=== PATIENT | female | born 1980 | race Caucasian/White ===

== ENCOUNTER 2021-05-25 12:24 | Outpatient (CLI) | payer MEDICAID, SELFPAY ==
[2021-05-25 14:44] LABS: Follicle Stimulating Hormone 7.5 mIU/mL; Luteinizing Hormone 3.7 mIU/mL; Prolactin 6.3 ng/mL; T4 Free Direct 0.97 ng/dL (0.76-1.46); Thyroid Stim Hormone (TSH) 1.47 uIU/mL (0.358-3.74)
[2021-06-02 21:31] LABS: HPV APTIMA, High Risk Positive (Negative)
== END 2021-05-25 23:59 | disposition home or self-care (01) ==
PROVIDERS: Visit Provider Student in an Organized Health Care Education/Training Program
DX: Z12.4 Encounter for screening for malignant neoplasm of cervix (principal); N92.6 Irregular menstruation, unspecified
CPT/HCPCS: 36415; 82627; 83001; 83002; 84146; 84402; 84439; 84443; 87624; 88175; 82626; G0145

== ENCOUNTER → 2021-07-03 | Outpatient (CLI) | payer MEDICAID, SELFPAY ==
--- NOTE | 2021-07-03 | IMM_PTH ---
PATIENT: GARIMA VILLEGAS [facility] U#:[id number] AGE/SX: 40/F ROOM: RE07/03/[address]: Dr. Myra Felix, : 1980 BED: DIS: 07/03/2021 SPEC #: [id number] RECD: 07/03/21 11:39 STATUS: SMITH RENicky #: [id number] ROBBY: 07/03/21 00:[address]: Myra Felix DEPT: IMMUNOHISTOCHEMISTRY RECD BY: Katherine Mckeon Tissues: A - Uterine cervix, NOS B - Endocervical Procedures: p16 (initial) KI-67 (add) PHYSICIAN & [place] [id number] SPECIMEN INFORMATION: Tissue Source: A ? Cervical biopsy, 6 at 12 o?clock, B ? Endocervical curettings Clinical Info: HGSIL, HPV positive Specimen Number: [id number] A & B CPT code: 94155 x2, 49256 x2 METHODOLOGY: Deparaffinized sections of prefer/formalin-fixed tissue or PAP/DQ stained slides are incubated with monoclonal/polyclonal antibodies/oligonucleotide probes. Localization is made via biotin free immunoperoxidase method. Appropriate controls are performed and reacted as expected. Results on target cell population are indicated in the following table: RESULTS: ANTIBODY / CLONE RESULT Block A P16 (E6H4) negative Ki-67 (30-9) positive, low Block B P16 (E6H4) negative Ki-67 (30-9) positive, low These tests were developed and their performance characteristics determined by [facility]. They may not have been cleared or approved by the [place]. Food and Drug Administration. The FDA has determined that such clearance or approval is not necessary. The above immunohistochemical/dualISH markers are ordered and reviewed by the Pathologist. INTERPRETATION: A. Cervix, biopsy: No evidence of dysplasia. B. Endocervix, curettings: No evidence of dysplasia. AM:brenda 07/08/2021
--- NOTE | 2021-07-03 | CER_PTH ---
PATIENT: GARIMA VILLEGAS LOC: [facility]#:[id number] AGE/SX: 40/F ROOM: RE07/03/[address]: Dr. Myra Felix, : 1980 BED: DIS: 07/03/2021 SPEC #: [id number] RECD: 07/03/21 14:02 STATUS: SMITH NICHOLAS #: [id number] ROBBY: 07/03/21 00:[address]: Myra Felix DEPT: SURGICAL PATHOLOGY RECD BY: Katherine Mckeon Tissues: A - Uterine cervix, NOS B - Endocervical Procedures: Surgery Specimen Level IV HEADER OPERATION: Colposcopy PRE-OP DIAGNOSIS: HGSIL, HPV positive TISSUE SUBMITTED: A - Cervical Biopsy 6 and 12 o'clock, B - ECC MICROSCOPIC DIAGNOSIS A. Cervix at 6 and 12 o?clock, biopsy: Focal HPV change suspected. See comment. B. Endocervix, curettings: Rare strips of benign superficial endocervix. No evidence of dysplasia. Detached benign squamous epithelial cells. See comment. AM:brenda 07/07/2021 COMMENT A & B. Results from immunohistochemistry ([id number]) for surrogate HPV marker (p16) will be reported separately. MICROSCOPIC DESCRIPTION Slides are reviewed. GROSS DESCRIPTION A - Received in fixative is one container labeled with the patient's name and designated cervical biopsy 6 and 12 o'clock. The specimen consists of two irregular fragments of light garcia soft tissue that in aggregate measure 0.5 x 0.5 x 0.1 cm. The specimen is totally submitted in one cassette. B - Received in fixative is one container labeled with the patient's name and designated ECC. The specimen consists of multiple fragments of hemorrhagic mucoid tissue that in aggregate measure 1 x 0.5 x 0.1 cm. The specimen is totally submitted in one cassette. / JOYCE:brenda 07/06/2021 TC:3 CPT: 39068 x2
== END | disposition home or self-care (01) ==
PROVIDERS: Visit Provider Student in an Organized Health Care Education/Training Program
DX: A08.4 Viral intestinal infection, unspecified (principal)
CPT/HCPCS: 88305; 88341; 88342